=== PATIENT | female | born 1960 | race Caucasian/White ===

== ENCOUNTER 2016-08-09 08:57 | Day surgery (SDC) | payer OTHER ==
[~2016-08-09] VITALS: Ht 180.3 cm; Wt 68.2 kg
[2016-08-09] VITALS (9 sets, daily range): BP systolic 92–118; BP diastolic 42–82; PULSE 47–62; RESP 16–20; TEMP 97.8–97.9; O2SAT 96–99
[2016-08-09] MEDS ORDERED: PROZ20CA11 PO (09:26)
[2016-08-09] MEDS ORDERED: MIDAZOLAM HCL 5 MG/5 ML VIAL ONE (10:10)
[2016-08-09] MEDS ORDERED: fentaNYL CITRATE 250 MCG/5 ML AMP ONE (10:10)
[2016-08-09] MEDS ORDERED: LIDOCAINE 1%/EPINEPHrine 1:100,000 SOLN 20 ML VIAL ONE (10:24)
[2016-08-09] MEDS ORDERED: HYDROmorphone HCL 2 MG TAB PO PRN (11:30)
--- NOTE | 2016-08-09 11:33 | RADRPT ---
EXAM DATE/TIME: 08/09/2016 10:35 [facility] COMPARISON: No previous studies available for comparison. INDICATIONS : Liver function biopsy SEDATION TIME: 15 minutes BIOPSY SITE: liver MEDICATION(S): 1.) 4 mg midazolam (Versed) IV 2.) 200 mcg fentanyl (Sublimaze) IV DEVICE(S): 1.) 18 gauge Temno core biopsy needle MEDICAL HISTORY : None. SURGICAL HISTORY : None. ENCOUNTER: Initial ACUITY: 1 day PAIN SCORE: 0/10 LOCATION: abdomen A total of two core specimen(s) were obtained and sent to the laboratory for pathologic evaluation. PROCEDURE: 1. CT guided liver biopsy. 2. Conscious sedation with continuous EKG and oximetry monitoring. 3. EKG and oximetry remained stable throughout the procedure. Prior to the procedure informed consent was obtained. Using automated exposure control and adjustment of the mA and/or kV according to patient size, radiat ion dose was kept as low as reasonably achievable to obtain optimal diagnostic quality images. The site was prepped in a sterile fashion. Full sterile technique was used, including cap, mask, ingris rile gloves and gown and a large sterile sheet. Hand hygiene and 2% chlorhexidine and/or betadine/al cohol prep was utilized per protocol for cutaneous antisepsis. The skin and subcutaneous tissues wer e infiltrated with local anesthetic solution. With CT guidance the right lobe of the liver was localized. Biopsy was performed using the prescribed needle as above. Adequate hemostasis was obtained with compression at the puncture site. Follow-up CT scan reveals no hemorrhage or acute abnormality. The patient tolerated the procedure well and there were no complications. The patient was returned to the Radiology Outpatient Unit in stable condition. CONCLUSION: Uncomplicated CT guided biopsy of the liver. Bandar Navarro MD on August 09, 2016 at 11:29 Board Certified Radiologist. This report was verified electronically.
== END 2016-08-09 15:30 | disposition home or self-care (01) ==
LOC: HRAD 08:57 → HRIP 08:58 → HRAD 15:30
PROVIDERS: ATTEND Hospitalist
DX: R79.89 Other specified abnormal findings of blood chemistry (principal)
CPT/HCPCS: 47000; 77012; 88307; 88313; J2250; J3010

== ENCOUNTER 2017-01-16 12:33 | Emergency (ER) | payer OTHER ==
[~2017-01-16] VITALS: Ht 170.2 cm; Wt 61.4 kg
[~2017-01-16 12:33] MED LIST: PROZ20CA11 PO
[2017-01-16] MEDS ORDERED: HALOPERIDOL LACTATE 5 MG/ML AMP IM ONE (13:00)
[2017-01-16] MEDS ORDERED: LORazepam 2 MG/ML VIAL IM ONE (13:00)
[2017-01-16] MEDS ORDERED: diphenhydrAMINE HCL 50 MG/ML VIAL IM ONE (13:00)
[2017-01-16 13:10] VITALS: BP 110/67; PULSE 74; RESP 15; TEMP 97.9; O2SAT 94
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
[2017-01-16 13:59] LABS: AUTOMATED NEUTROPHIL # 3.2 TH/MM3 (1.8-7.7); BASOPHIL # 0.1 TH/MM3 (0-0.2); EOSINOPHIL # 0.2 TH/MM3 (0-0.4); EOSINOPHIL % 2.9 % (0.0-4.0); HEMATOCRIT 43.3 % (35.0-46.0); HEMO FLAGS DIFF FINAL; LYMPH % 41.1 % (9.0-44.0); LYMPHOCYTE # 2.6 TH/MM3 (1.0-4.8); MEAN CELL VOLUME 89.1 FL (80.0-100.0); MEAN CORPUSCULAR HEMOGLOBIN 29.7 PG (27.0-34.0); MEAN CORPUSCULAR HGB CONC 33.3 % (32.0-36.0); MONO % 4.4 % (0.0-8.0); NEUT % 50.6 % (16.0-70.0); PLATELET COUNT 265 TH/MM3 (150-450); RED BLOOD COUNT 4.86 MIL/MM3 (4.00-5.30); RED CELL DISTRIBUTION WIDTH 14.5 % (11.6-17.2); WHITE BLOOD COUNT 6.3 TH/MM3 (4.0-11.0)
[2017-01-16 14:18] LABS: ANION GAP 9 MEQ/L (5-15); AST (GOT) 25 U/L (15-37); BICARBONATE 25.8 MEQ/L (21.0-32.0); BLOOD UREA NITROGEN 8 MG/DL (7-18); CHLORIDE 108 MEQ/L (98-107); GLOMERULAR FILTRATION RATE 87 ML/MIN (>89); POTASSIUM 3.8 MEQ/L (3.5-5.1); SODIUM (NA) 143 MEQ/L (136-145)
[2017-01-16 14:21] LABS: ALKALINE PHOSPHATASE 48 U/L (45-117); ALT (GPT) 24 U/L (10-53); TOTAL BILIRUBIN ADULT 0.2 MG/DL (0.2-1.0)
[2017-01-16 14:38] LABS: ACETAMINOPHEN LESS THAN 2.0 MCG/ML (10.0-30.0)
[2017-01-16 14:48] LABS: ALCOHOL 304 MG/DL (0-5)
--- NOTE | 2017-01-16 15:30 | PD ---
History of Present Illness Chief Complaint: Psychiatric Symptoms Travel History International Travel<30 Days: No (UNABLE TO FULLY ASSESS, PT NOT COOPERATIVE) Contact w/Intl Traveler<30days: No (UNABLE TO ASSESS, PT NOT COOPERATIVE) Known affected area: No (UNABLE TO ASSESS, PT NOT COOPERATIVE) Legal Status Legal Status: [employer] History of Present Illness: 56-year-old female brought in under a Edouard act for making suicidal statements while intoxicated. Patient noted to have alcohol level over 300. Patient remains somewhat intoxicated but she is arousable and states that she is not suicidal at this time. She has no suicidal or homicidal ideation, plan or intent. She shows no evidence of psychotic thinking. Her cognition is intact. The patient has obviously abused alcohol and this is an inappropriate use of the Edouard act. PFSH Past Medical History Medical History: Unable to Obtain Cancer: Yes Cardiovascular Problems: No Diabetes: No Endocrine: No Genitourinary: No Hepatitis: No Hiatal Hernia: No Immune Disorder: Yes Medical other: Yes (PT STATES RECENT DIAGNOSIS OF SCLERDERMA) Musculoskeletal: No Neurologic: No Psychiatric: Yes (depression) Reproductive: No Respiratory: No Thyroid Disease: No Tetanus Vaccination: Unknown ?: Unknown Past Surgical History Surgical History: Unable to Obtain Psychiatric History Psychiatric History History of Inpatient Treatment: No Guns or firearms in home: No Social History Hx Alcohol Use: Yes Hx Tobacco Use: No (UNABLE TO ASSESS, PT NOT COOPERATIVE) Hx Substance Use: Yes Substance Use Type: Alcohol Allergies-Medications (Allergen,Severity, Reaction): Coded Allergies: penicillin G (Verified Allergy, Mild, unknown, 01/16/17) Reported Meds & Prescriptions Reported Meds & Active Scripts Active Reported Prozac (Fluoxetine HCl) 20 Mg Cap 20 Mg PO DAILY Review of Systems Except as stated in HPI: all other systems reviewed are Neg Mental Status Examination Appearance: Appropriate Consciousness: Lethargic Orientation: Person, Place, Situation Motor Activity: Normal gait Speech: Hesitant Language: Adequate Fund of Knowledge: Adequate Attention and Concentration: Adequate Memory: Unremarkable Mood: Appropriate Affect: Appropriate Thought Process & Associations: Intact Thought Content: Appropriate Hallucination Type: None Delusion Type: None Suicidal Ideation: No Suicidal Plan: No Suicidal Intention: No Homicidal Ideation: No Homicidal Plan: No Homicidal Intention: No Insight: Adequate Judgment: Adequate MDM Medical Decision Making Medical Record Reviewed: Yes Assessment/Plan Patient seen at bedside, medical record reviewed and case discussed with nurse Aguirre. This physician continues to feel this is an inappropriate use of the Edouard act. Patient obviously has alcohol intoxication and alcohol abuse. However, she denies suicidal or homicidal ideation, plan or intent. She shows no evidence of psychotic thinking and her cognition is intact. This physician advises when she is medically cleared sufficiently (sober) she may be discharged. She should also be referred to [facility] for follow up. Orders Orders Complete Blood Count With Diff (01/16/17 12:56) Comprehensive Metabolic Panel (01/16/17 12:56) Psych Screen (01/16/17 12:56) Haloperidol Inj (Haldol Inj) (01/16/17 13:00) Lorazepam Inj (Ativan Inj) (01/16/17 13:00) Drug Screen, Random Urine (01/16/17 12:56) Alcohol (Ethanol) (01/16/17 12:56) Salicylates (Aspirin) (01/16/17 12:56) Tylenol (Acetaminophen) (01/16/17 12:56) Diphenhydramine Inj (Benadryl Inj) (01/16/17 13:00) Results Vital Signs Date Time Temp Pulse Resp B/P (MAP) Pulse Ox O2 Delivery O2 Flow Rate FiO2 01/16/17 14:06 75 01/16/17 13:10 97.9 74 15 110/67 (81) 94 Laboratory Tests Test 01/16/17 13:30 01/16/17 13:38 White Blood Count 6.3 Red Blood Count 4.86 Hemoglobin 14.4 Hematocrit 43.3 Mean Corpuscular Volume 89.1 Mean Corpuscular Hemoglobin 29.7 Mean Corpuscular Hemoglobin Concent 33.3 Red Cell Distribution Width 14.5 Platelet Count 265 Mean Platelet Volume 8.5 Neutrophils (%) (Auto) 50.6 Lymphocytes (%) (Auto) 41.1 Monocytes (%) (Auto) 4.4 Eosinophils (%) (Auto) 2.9 Basophils (%) (Auto) 1.0 Neutrophils # (Auto) 3.2 Lymphocytes # (Auto) 2.6 Monocytes # (Auto) 0.3 Eosinophils # (Auto) 0.2 Basophils # (Auto) 0.1 CBC Comment DIFF FINAL Differential Comment Blood Urea Nitrogen 8 Creatinine 0.70 Random Glucose 81 Total Protein 7.8 Albumin 4.0 Calcium Level 8.6 Alkaline Phosphatase 48 Aspartate Amino Transf (AST/SGOT) 25 Alanine Aminotransferase (ALT/SGPT) 24 Total Bilirubin 0.2 Sodium Level 143 Potassium Level 3.8 Chloride Level 108 Carbon Dioxide Level 25.8 Anion Gap 9 Estimat Glomerular Filtration Rate 87 Salicylates Level LESS THAN 1.7 Acetaminophen Level LESS THAN 2.0 Ethyl Alcohol Level 304 Urine Opiates Screen NEG Urine Barbiturates Screen NEG Urine Amphetamines Screen NEG Urine Benzodiazepines Screen NEG Urine Cocaine Screen NEG Urine Cannabinoids Screen NEG Diagnosis Primary Impression: Alcohol abuse Condition: Stable Gigi Joyner MD Jan 16, 2017 15:30
[2017-01-16 18:57] VITALS: BP 101/61; PULSE 75; RESP 18; O2SAT 100
[2017-01-16 22:08] VITALS: BP 111/57; PULSE 78; RESP 18; O2SAT 99
== END 2017-01-16 22:10 | disposition home or self-care (01) ==
LOC: NEPE 12:33
DX: F10.129 Alcohol abuse with intoxication, unspecified (principal); F32.9 Major depressive disorder, single episode, unspecified; Y90.8 Blood alcohol level of 240 mg/100 ml or more; Z79.899 Other long term (current) drug therapy
CPT/HCPCS: 80053; 80307; 85025; 96372; 99284; J1200; J1630; J2060

== ENCOUNTER 2017-03-01 17:01 | Emergency (ER) | payer OTHER ==
[~2017-03-01] VITALS: Ht 177.8 cm; Wt 70.0 kg
[2017-03-01 17:42] VITALS: BP 118/79; PULSE 103; RESP 24; TEMP 98.9; O2SAT 100
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
[2017-03-01] MEDS ORDERED: LORazepam 2 MG/ML VIAL IM ONE ×2 (18:15)
[2017-03-01] MEDS ORDERED: LORazepam 2 MG/ML VIAL IV ONE (18:30)
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
[2017-03-01 18:54] LABS: AUTOMATED NEUTROPHIL # 4.7 TH/MM3 (1.8-7.7); BASOPHIL # 0.1 TH/MM3 (0-0.2); BASOPHIL % 0.9 % (0.0-2.0); EOSINOPHIL # 0.1 TH/MM3 (0-0.4); EOSINOPHIL % 1.1 % (0.0-4.0); HEMATOCRIT 42.2 % (35.0-46.0); HEMO FLAGS DIFF FINAL; LYMPH % 40.4 % (9.0-44.0); LYMPHOCYTE # 3.5 TH/MM3 (1.0-4.8); MEAN CELL VOLUME 89.4 FL (80.0-100.0); MEAN CORPUSCULAR HEMOGLOBIN 30.7 PG (27.0-34.0); MEAN CORPUSCULAR HGB CONC 34.3 % (32.0-36.0); MONO % 3.9 % (0.0-8.0); NEUT % 53.7 % (16.0-70.0); PLATELET COUNT 270 TH/MM3 (150-450); RED BLOOD COUNT 4.72 MIL/MM3 (4.00-5.30); RED CELL DISTRIBUTION WIDTH 14.7 % (11.6-17.2); WHITE BLOOD COUNT 8.7 TH/MM3 (4.0-11.0)
[2017-03-01 19:13] LABS: ALT (GPT) 35 U/L (10-53)
[2017-03-01 19:15] LABS: ALKALINE PHOSPHATASE 56 U/L (45-117); TOTAL BILIRUBIN ADULT 0.2 MG/DL (0.2-1.0)
[2017-03-01 19:30] LABS: ANION GAP 6 MEQ/L (5-15); AST (GOT) 33 U/L (15-37); BICARBONATE 28.9 MEQ/L (21.0-32.0); BLOOD UREA NITROGEN 9 MG/DL (7-18); CHLORIDE 105 MEQ/L (98-107); GLOMERULAR FILTRATION RATE 84 ML/MIN (>89); POTASSIUM 4.1 MEQ/L (3.5-5.1); SODIUM (NA) 140 MEQ/L (136-145)
[2017-03-01] MEDS ORDERED: traMADol HCL 50 MG TAB PO ONE (19:30)
[2017-03-01] MEDS ORDERED: KETOROLAC TROMETHAMINE 60 MG/2 ML (IM) VIAL IM ONE (21:15)
[2017-03-01] MEDS ORDERED: ONDANSETRON HCL 4 MG/2 ML VIAL IV PUSH ONE (21:45)
[2017-03-01 22:31] LABS: ALCOHOL 261 MG/DL (0-5)
[2017-03-01 22:42] VITALS: BP 84/51; PULSE 68; RESP 16; O2SAT 97
[2017-03-01 22:59] VITALS: BP 93/52; PULSE 73; RESP 17; TEMP 97.9; O2SAT 94
[2017-03-01 23:31] LABS: BLOOD, URINE SMALL (NEG); GLUCOSE,URINE NEG (NEG); HYALINE CAST, URINE 6 /lpf (RARE); KETONE, URINE NEG (NEG); MUCUS URINE FEW /lpf (OCC); NITRITE,URINE NEG (NEG); SQUAMOUS EPITHELIAL CELL URINE 2 /hpf (0-5); URINE COLOR YELLOW (YELLW/STRAW)
[2017-03-01 23:32] LABS: COMMENT (UR) CULT NOT INDICATED; CULTURE IF INDICATED CULT NOT INDICATED
[2017-03-02] MEDS ORDERED: LORazepam 2 MG/ML VIAL IM ONE (01:00)
[2017-03-02 02:15] VITALS: BP 86/56; PULSE 65; RESP 16; TEMP 98.6; O2SAT 95
--- NOTE | 2017-03-02 08:29 | PD ---
Physical Exam Date Seen by Provider: Mar 02, 2017 Time Seen by Provider: 08:20 Narrative 56 year old female patient was cleared from our facility medically and psychiatrically. I was asked to disposition the patient. Data Data Last Documented VS Vital Signs Date Time Temp Pulse Resp B/P (MAP) Pulse Ox O2 Delivery O2 Flow Rate FiO2 03/02/17 09:01 98.6 75 18 128/73 (91) 99 Room Air Orders Orders Ed Urine Pregnancytest Poc (03/01/17 17:46) Urinalysis - C+S If Indicated (03/01/17 17:58) Foot, Limited (2vws) (03/01/17 ) Lorazepam Inj (Ativan Inj) (03/01/17 18:15) Lorazepam Inj (Ativan Inj) (03/01/17 18:15) Complete Blood Count With Diff (03/01/17 18:19) Comprehensive Metabolic Panel (03/01/17 18:19) Psych Screen (03/01/17 18:19) Drug Screen, Random Urine (03/01/17 18:19) Hand, Limited (2vws) (03/01/17 ) Lorazepam Inj (Ativan Inj) (03/01/17 18:30) Tramadol (Ultram) (03/01/17 19:30) Ketorolac Inj (Toradol Inj) (03/01/17 21:15) Ondansetron Inj (Zofran Inj) (03/01/17 21:45) Alcohol (Ethanol) (03/01/17 18:30) Lorazepam Inj (Ativan Inj) (03/02/17 01:00) Diet Regular Basic (03/02/17 Breakfast) Ed Discharge Order (03/02/17 08:29) Labs Laboratory Tests Test 03/01/17 18:30 03/01/17 22:00 White Blood Count 8.7 TH/MM3 Red Blood Count 4.72 MIL/MM3 Hemoglobin 14.5 GM/DL Hematocrit 42.2 % Mean Corpuscular Volume 89.4 FL Mean Corpuscular Hemoglobin 30.7 PG Mean Corpuscular Hemoglobin Concent 34.3 % Red Cell Distribution Width 14.7 % Platelet Count 270 TH/MM3 Mean Platelet Volume 8.3 FL Neutrophils (%) (Auto) 53.7 % Lymphocytes (%) (Auto) 40.4 % Monocytes (%) (Auto) 3.9 % Eosinophils (%) (Auto) 1.1 % Basophils (%) (Auto) 0.9 % Neutrophils # (Auto) 4.7 TH/MM3 Lymphocytes # (Auto) 3.5 TH/MM3 Monocytes # (Auto) 0.3 TH/MM3 Eosinophils # (Auto) 0.1 TH/MM3 Basophils # (Auto) 0.1 TH/MM3 CBC Comment DIFF FINAL Differential Comment Blood Urea Nitrogen 9 MG/DL Creatinine 0.72 MG/DL Random Glucose 85 MG/DL Total Protein 8.4 GM/DL Albumin 4.1 GM/DL Calcium Level 8.8 MG/DL Alkaline Phosphatase 56 U/L Aspartate Amino Transf (AST/SGOT) 33 U/L Alanine Aminotransferase (ALT/SGPT) 35 U/L Total Bilirubin 0.2 MG/DL Sodium Level 140 MEQ/L Potassium Level 4.1 MEQ/L Chloride Level 105 MEQ/L Carbon Dioxide Level 28.9 MEQ/L Anion Gap 6 MEQ/L Estimat Glomerular Filtration Rate 84 ML/MIN Ethyl Alcohol Level 261 MG/DL Urine Color YELLOW Urine Turbidity CLEAR Urine pH 6.0 Urine Specific [place] 1.015 Urine Protein TRACE mg/dL Urine Glucose (UA) NEG mg/dL Urine Ketones NEG mg/dL Urine Occult Blood SMALL Urine Nitrite NEG Urine Bilirubin NEG Urine Urobilinogen LESS THAN 2.0 MG/DL Urine Leukocyte Esterase SMALL Urine RBC 2 /hpf Urine WBC 3 /hpf Urine Squamous Epithelial Cells 2 /hpf Urine Hyaline Casts 6 /lpf Urine Mucus FEW /lpf Microscopic Urinalysis Comment CULT NOT INDICATED Urine Opiates Screen NEG Urine Barbiturates Screen NEG Urine Amphetamines Screen NEG Urine Benzodiazepines Screen NEG Urine Cocaine Screen NEG Urine Cannabinoids Screen NEG MDM Supervised Visit with HOSSEIN: Yes Differential Diagnosis Depression versus suicidal ideation versus anxiety versus adjustment disorder versus mood disorder versus bipolar disorder versus schizophrenia versus paranoid disorder versus psychosis versus substance abuse versus alcohol abuse versus alcohol induced psychosis versus homicidality addition versus cutting versus personality disorder Narrative Course 56 year old female patient was cleared from our facility both medically and psychiatrically. I was asked to disposition the patient. The patient denies any homicidal or suicidal ideation at this time. The patient will be discharged home with instructions to follow up with [facility]. Diagnosis Primary Impression: Suicidal thoughts Referrals: [facility] (Out patient) Patient Instructions: General Instructions, Suicide Prevention for Adults (DC) Disposition: 01 DISCHARGE HOME Condition: Stable Tosha Ang Mar 02, 2017 08:29
[2017-03-02 09:01] VITALS: BP 128/73; PULSE 75; RESP 18; TEMP 98.6; O2SAT 99
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
== END 2017-03-02 10:15 | disposition home or self-care (01) ==
LOC: NEPD 17:01 → NEPJ 03-02 10:15
DX: R45.851 Suicidal ideations (principal); S60.221A Contusion of right hand, initial encounter; S90.31XA Contusion of right foot, initial encounter; F10.24 Alcohol dependence with alcohol-induced mood disorder; F60.3 Borderline personality disorder; M31.30 Wegener's granulomatosis without renal involvement; M34.9 Systemic sclerosis, unspecified; X50.1XXA Overexertion from prolonged static or awkward postures, initial encounter; Z79.899 Other long term (current) drug therapy
CPT/HCPCS: 73120; 73620; 80053; 80307; 81001; 84703; 85025; 96372; 96374; 96375; 99284; J1885; J2060; J2405